=== PATIENT | female | born 1960 | race Caucasian/White ===

== ENCOUNTER 2021-03-10 06:42 | Emergency (ER) | payer MEDICARE, OTHER, SELFPAY ==
[2021-03-10 06:31] VITALS: BP 125/79; PULSE 80; RESP 16; TEMP 36.8; O2SAT 97; BMI 27.4
--- NOTE | 2021-03-10 06:32 | HMH.EDGENADL ---
ED Disposition Clinical Impression: Facial laceration Qualifiers: Encounter type: initial encounter Qualified Code(s): S01.81XA - Laceration without foreign body of other part of head, initial encounter Head injury Qualifiers: Encounter type: initial encounter Qualified Code(s): S09.90XA - Unspecified injury of head, initial encounter Disposition: Home, Self-Care Condition on Discharge: Good Instructions: How to Prevent Falls Additional Instructions: Return in 7 days for suture removal. Keep sutures clean, dry, and intact. After sutures removed, use sunscreen on area over the next several months to improve cosmetic outcome. Concussion cannot be ruled out. Avoid activities that predispose to a second head injury over the next 1-2 weeks and any activities that may exacerbate/illicit symptoms. Follow-up with PCP for recheck. Return if any new or worsening symptoms prior to that time. Referrals: Robert Calvin MD [Primary Care Provider] - - Critical Care Critical Care Time: No Attestation: On , the high probability of a clinically significant, sudden or life threatening deterioration of the following system(s) required my full and direct attention, intervention and personal management. The time I documented below is in addition to time spent performing reported procedures but includes the following listed in this critical care notation. Medical Decision Making - Medical Records Medical records reviewed: Yes: I reviewed the patient's medical records. - Khang Inquiry Pt receiving controlled substance: No Vital Signs: 03/10/21 06:31 03/10/21 07:40 Temperature 98.2 F Temperature Source Oral Pulse Rate 82 Pulse Rate [Left Radial] 80 Respiratory Rate 16 18 Blood Pressure 148/81 H Blood Pressure [Left Arm] 125/79 Blood Pressure Mean [Left Arm] 94 Blood Pressure Source [Left Arm] Automatic Cuff Blood Pressure Position Sitting Blood Pressure Position [Left Arm] Sitting 02 Sat by Pulse Oximetry 97 97 Oxygen Delivery Method Room Air Room Air Orders (Tests/Meds): ED MEDICATIONS Discontinued Medications Generic Name Dose Route Start Last Admin Trade Name Freq PRN Reason Stop Dose Admin Tetanus/Diphtheria Toxoids 0.5 ml 03/10/21 06:43 03/10/21 06:51 Tetanus-Diphth Toxoid, Adult 0.5ml Syr IM 03/10/21 06:44 0.5 ml .ONCE ONE Administration ORDERS Category Date Time Status CT cervical spine wo con Stat Cat Scan 03/10/21 06:[address] facial bones wo con Stat Cat Scan 03/10/21 06:[address] head/brain wo con Stat Cat Scan 03/10/21 06:49 Taken Elbow XR right 2 views [XR elbow RT 2V] Stat Exams 03/10/21 06:35 Taken Medical Decision Narrative: Patient presents the emergency department after a mechanical fall suffering a laceration just superior to the right upper lip. She did not lose consciousness. She has no neck pain. She did not hit her head. No signs of trauma to scalp. No headache, n/v, or altered mental status. She does endorse some mild right elbow pain. X-ray will be obtained to ensure no bony abnormality. She does have some ecchymosis and some tenderness on palpation of right maxilla. CT facial bones ordered to ensure no bony abnormality. Patient's tetanus will be updated. Patient unable to give a clear history though I am concerned to the obvious trauma to her face. CT head will be obtained to ensure no acute intracranial abnormality as well as CT cervical spine to ensure no hyperextension injury. X-ray, per my review, demonstrates no bony abnormalities right elbow and CT also negative for acute bony injury to the face/neck. CT head negative for ICH/skull fx. See procedure section's note for further details on laceration repair. Patient tolerated procedure well. She will return in 5 to 7 days for suture removal. Suture care guidelines gone over in detail with patient and she verbalizes understanding agrees. Patient discharged in stable condition. Disposition
--- NOTE | 2021-03-10 06:35 | XR_ITS ---
PROCEDURE INFORMATION: Exam: XR Right Elbow Exam date and time: 03/10/2021 6:35 AM Age: 60 years old Clinical indication: Injury or trauma; Fall; Blunt trauma (contusions or hematomas); Elbow; Right; Additional info: R elbow pain S/P fall TECHNIQUE: Imaging protocol: XR Right elbow. Views: 1 or 2 views. COMPARISON: No relevant prior studies available. FINDINGS: Bones/joints: There is a deformity of the radial head which I suspect represents sequelae of remote trauma, although, an acute radial head fracture is not excluded entirely. I do not see a definite joint effusion arguing against an acute radial head fracture. The distal humerus and proximal ulna are intact. Soft tissues: See Bones/joints finding. IMPRESSION: 1. Deformity of the radial head which I suspect is sequelae of remote trauma , although, clinical correlation is advised. 2. No definite joint effusion arguing against an acute radial head fracture.
--- NOTE | 2021-03-10 06:36 | CT_ITS ---
PROCEDURE INFORMATION: Exam: CT Maxillofacial Without Contrast Exam date and time: 03/10/2021 6:36 AM Age: 60 years old Clinical indication: Injury or trauma; Fall; Blunt trauma (contusions or hematomas); Maxilla; Additional info: Mechanical fall w/ttp R maxilla and bruising TECHNIQUE: Imaging protocol: Computed tomography images of the face without contrast. Radiation optimization: All CT scans at this facility use at least one of these dose optimization techniques: automated exposure control; mA and/or kV adjustment per patient size (includes targeted exams where dose is matched to clinical indication); or iterative reconstruction. COMPARISON: No relevant prior studies available. FINDINGS: Orbital cavity: Orbits are normal. Globes are unremarkable. Bones/joints: No acute fracture. Paranasal sinuses: Normal. No air-fluid levels. Auditory system: There is debris in the external auditory canals. Soft tissues: Unremarkable. IMPRESSION: No acute findings.
--- NOTE | 2021-03-10 06:49 | CT_ITS ---
PROCEDURE INFORMATION: Exam: CT Cervical Spine Without Contrast Exam date and time: 03/10/2021 6:49 AM Age: 60 years old Clinical indication: Injury or trauma; Fall; Blunt trauma; Additional info: Mechanical fall onto face R/O hyperextension injur TECHNIQUE: Imaging protocol: Computed tomography images of the cervical spine without contrast. Radiation optimization: All CT scans at this facility use at least one of these dose optimization techniques: automated exposure control; mA and/or kV adjustment per patient size (includes targeted exams where dose is matched to clinical indication); or iterative reconstruction. COMPARISON: No relevant prior studies available. FINDINGS: Limitations: Motion. Bones/joints: The anterior, posterior and spinal laminar lines are maintained. The vertebral body heights are maintained as well. The posterior elements appear intact and normally articulated. The atlantooccipital and atlantoaxial articulations are anatomic. The visualized skull base appears intact. Discs/Spinal canal/Neural foramina: There are mild age-related degenerative changes in the cervical spine. Detail of the spinal canal is limited by CT evaluation. However, no large disc protrusion epidural hematoma or epidural abscess identified. No severe spinal canal stenosis. Thyroid: There is a peripherally calcified 1.2 cm nodule within the left thyroid lobe. Lungs: Lung apices are clear. Soft tissues: No prevertebral or posterior paraspinous swelling. IMPRESSION: No acute fracture or dislocation of the cervical spine. COMMENTS: Consistent with the [place] [employer]'s Incidental Findings Committee white paper (J Am Enrique Radiol 2015): In patients aged 35 years and older with an incidental thyroid nodule equal to or greater than 1.[address], MRI or extrathyroidal US, further evaluation with dedicated thyroid US is recommended for patients with normal life expectancy and without comorbidities. For smaller nodules without suspicious features, no further evaluation or follow up is recommended.
--- NOTE | 2021-03-10 06:49 | CT_ITS ---
PROCEDURE INFORMATION: Exam: CT Head Without Contrast Exam date and time: 03/10/2021 6:49 AM Age: 60 years old Clinical indication: Injury or trauma; Fall; Blunt trauma (contusions or hematomas); Without loss of consciousness; Additional info: Head injury, fall TECHNIQUE: Imaging protocol: Computed tomography of the head without contrast. Radiation optimization: All CT scans at this facility use at least one of these dose optimization techniques: automated exposure control; mA and/or kV adjustment per patient size (includes targeted exams where dose is matched to clinical indication); or iterative reconstruction. COMPARISON: No relevant prior studies available. FINDINGS: Limitations: Motion. Brain: The banuelos-white matter differentiation and basilar cisterns are maintained. There is no mass, mass effect or midline shift. No acute intracranial hemorrhage is identified. Cerebral ventricles: No intraventricular hemorrhage or mass. Bones/joints: Osseous structures are intact. No osteolytic or blastic bone lesions appreciated. Paranasal sinuses: There is minimal mucosal thickening within the posterior right ethmoid air cells. There is mild mucosal thickening within the sphenoid sinuses. Mastoid air cells: Visualized mastoid air cells are well aerated and clear. Auditory system: There is debris within the external auditory canals bilaterally. Orbital cavity: The globes are intact and there is no retro-orbital hematoma. Soft tissues: No focal scalp swelling or hematoma. IMPRESSION: 1. Limited by motion but no definite acute intracranial trauma. 2. Mild sinusitis.
--- NOTE | 2021-03-10 07:38 | PC.NURSE ---
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 Pt tolerated well.
[2021-03-10 07:40] VITALS: BP 148/81; PULSE 82; RESP 18; O2SAT 97
--- NOTE | 2021-03-10 08:14 | PC.NURSE ---
notified staff at [facility] pt is ready for d/c
[2021-03-10 08:23] VITALS: BP 129/76; PULSE 81; RESP 18; O2SAT 96
[2021-03-10 09:22] VITALS: BP 129/76; PULSE 81; RESP 18; TEMP 36.8; O2SAT 96
--- NOTE | 2021-03-10 10:09 | PC.NURSE ---
per Dr. Calvin states him or his office staff will call [facility] on Friday of this coming week with a plan for follow up for pt r/t orthoglass splint on RUE r/t possible fracture. Relayed this information to addy at [facility] about follow up for pt.
== END 2021-03-10 09:22 | disposition home or self-care (01) ==
PROVIDERS: Emergency Provider Emergency Medicine; PCP Emergency Medicine
DX: S01.511A Laceration without foreign body of lip, initial encounter (principal); S63.501A Unspecified sprain of right wrist, initial encounter; W01.0XXA Fall on same level from slipping, tripping and stumbling without subsequent striking against object, initial encounter; Y92.017 Garden or yard in single-family (private) house as the place of occurrence of the external cause; Z23 Encounter for immunization; F17.210 Nicotine dependence, cigarettes, uncomplicated
CPT/HCPCS: 12051; 29125; 70450; 70486; 72125; 73070; 90471; 90714; 99282

== ENCOUNTER → 2021-03-23 13:24 | Outpatient (CLI) | payer MEDICARE, OTHER, SELFPAY ==
--- NOTE | 2021-03-23 13:29 | XR_ITS ---
PROCEDURE: XR WRIST RT MIN 3V CLINICAL INDICATION: RT wrist pain None COMPARISON: DX R WRIST, 2 VIEWS from 03/15/2021 FINDINGS: There is a splint in place anteriorly. No obvious fracture or dislocation is evident. Some of the bony detail somewhat obscured due to the overlying splint. The joint spaces are well-preserved. No significant degenerative/arthritic changes. No erosive changes evident. Other findings:None. IMPRESSION: No acute findings. Dictated by: Mayank Murry MD 03/23/2021 14:20 Mayank Murry MD in [facility] 03/23/2021 14:20
== END ==
PROVIDERS: PCP Emergency Medicine; Visit Provider Orthopaedic Surgery
DX: M25.531 Pain in right wrist (principal)
CPT/HCPCS: 73110

== ENCOUNTER 2021-03-23 14:41 | Outpatient (RCR) | payer MEDICARE, OTHER, SELFPAY | END 2021-03-23 15:31 | disposition home or self-care (01) | LOC: OT 14:41 | PROVIDERS: Visit Provider Orthopaedic Surgery | DX: M25.531 Pain in right wrist (principal) | CPT/HCPCS: 97763 ==

== ENCOUNTER 2021-04-07 11:14 | Observation (INO) | payer MEDICARE, OTHER, SELFPAY ==
[2021-04-07] VITALS (15 sets, daily range): BP systolic 94–153; BP diastolic 58–90; PULSE 65–96; RESP 18–38; TEMP 36.4–37.1; O2SAT 92–97; BMI 19.3; BMI 25.0
--- NOTE | 2021-04-07 11:25 | XR_ITS ---
PROCEDURE INFORMATION: Exam: XR Chest Exam date and time: 04/07/2021 11:25 AM Age: 60 years old Clinical indication: Tachypnea TECHNIQUE: Imaging protocol: XR of the chest. Views: 1 view. COMPARISON: No relevant prior studies available. FINDINGS: Lungs: No consolidation. Small well-defined nodule in the right costophrenic sulcus likely a calcified granuloma. Pleural spaces: No pleural effusion. No pneumothorax. Heart/Mediastinum: No cardiomegaly. Bones/joints: No acute abnormality. IMPRESSION: No acute cardiopulmonary disease.
--- NOTE | 2021-04-07 11:31 | ECG_ITS ---
APPROVED REPORT Exam: Resting ECG HR:68 bpm ECG Measurements Heart Rate 68 AXES IA 90 P 73 QRSd 120 QRS 38 QT 374 T 122 QTc 397 Conclusion Sinus rhythm with short IA Nonspecific intraventricular conduction delay Marked ST abnormality, possible lateral subendocardial injury Abnormal ECG Electronically signed by : Clem Stiles, 04/08/2021 08:52:09
[2021-04-07 11:43] LABS: Basophils % 0.2 % (0.1-2.0); Eosinophils % 0.3 % (0.1-12.0); Hematocrit 42.2 % (37.0-47.0); Hemoglobin 14.3 g/dL (12.2-16.2); Lymphocytes # 1.2 K/mm3 (0.7-4.5); Lymphocytes % 18.8 % (10-50); Mean Corpuscular HGB Conc 33.8 g/dL (31.8-35.4); Mean Corpuscular Hemoglobin 30.7 pg (27.0-31.2); Mean Corpuscular Volume 90.8 fl (81-99); Mean Platelet Volume 7.7 fl (7.4-10.4); Monocytes # 0.4 K/mm3 (0.1-1.0); Monocytes % 6.8 % (1.7-9.3); Neutrophils # 4.8 K/mm3 (1.8-7.8); Neutrophils % 73.9 % (37.0-80.0); Platelet Count 286 K/mm3 (142-424); Red Blood Count 4.65 M/mm3 (4.20-5.40); Red Cell Distribution Width 13.1 % (11.5-17.5); White Blood Count 6.5 K/mm3 (4.8-10.8)
[2021-04-07 11:46] LABS: Chloride 99 mmol/L (98-107); Sodium 127 mmol/L (136-145)
[2021-04-07 11:49] LABS: Alanine Aminotransferase 14 U/L (12-78); Albumin Level 3.9 g/dl (3.5-5.0); Albumin/Globulin Ratio 1.4 (1.1-1.8); Alkaline Phosphatase 83 U/L (38-126); Aspartate Amino Transferase 22 U/L (14-36); Bilirubin,Total 0.6 mg/dl (0.2-1.3); Blood Urea Nitrogen 3 mg/dl (7-17); Carbon Dioxide 21 mmol/L (22.0-30.0); Creatinine Clearance Estimated 87 mL/min (50-200); Estimated Glomerular Filt Rate 102 ml/min (>60); GFR (African American) 124 ML/MIN (>60); Globulin 2.7 g/dL (1.3-3.2); Total Protein,Serum 6.6 g/dl (6.3-8.2)
[2021-04-07 11:50] LABS: Calcium 8.6 mg/dl (8.4-10.2); Glucose 123 mg/dl (74-100)
--- NOTE | 2021-04-07 12:22 | HMH.EDGENADL ---
ED Disposition Clinical Impression: Hyponatremia, Hypokalemia, Weakness Disposition: Admitted As Inpatient Condition on Discharge: Good - Critical Care Critical Care Time: No Attestation: On 04/07/21, the high probability of a clinically significant, sudden or life threatening deterioration of the following system(s) required my full and direct attention, intervention and personal management. The time I documented below is in addition to time spent performing reported procedures but includes the following listed in this critical care notation. Medical Decision Making - Medical Records MR Comment: Long history of psychiatric issues and she lives in a personal nursing home. According to the staff she has some increased confusion. The only clinical finding is hyponatremia and hypokalemia. She will be admitted to be treated for those 2 problems as observation status. Dr. Stiles was called and he agreed admission. - Khang Inquiry Pt receiving controlled substance: No Vital Signs: 04/07/21 11:15 04/07/21 11:30 04/07/21 11:43 Temperature 97.5 F L Temperature Source Oral Pulse Rate 73 65 Pulse Rate [Left] 66 Respiratory Rate 38 H 20 22 Blood Pressure 94/66 L 102/64 L Blood Pressure [Right Arm] 111/68 Blood Pressure Mean 75 73 Blood Pressure Mean [Right Arm] 82 Blood Pressure Source Blood Pressure Source [Right Arm] Automatic Cuff Blood Pressure Position Blood Pressure Position [Right Arm] Sitting 02 Sat by Pulse Oximetry 92 L 96 96 Oxygen Delivery Method Room Air 04/07/21 12:00 04/07/21 12:30 04/07/21 13:01 Temperature Temperature Source Pulse Rate 82 70 81 Pulse Rate [Left] Respiratory Rate 18 20 22 Blood Pressure 102/58 L 101/64 L 123/89 Blood Pressure [Right Arm] Blood Pressure Mean 72 72 97 Blood Pressure Mean [Right Arm] Blood Pressure Source Blood Pressure Source [Right Arm] Blood Pressure Position Blood Pressure Position [Right Arm] 02 Sat by Pulse Oximetry 97 Oxygen Delivery Method 04/07/21 13:30 04/07/21 14:12 04/07/21 14:30 Temperature 98.3 F Temperature Source Oral Pulse Rate 76 78 88 Pulse Rate [Left] Respiratory Rate 20 18 20 Blood Pressure 140/70 150/89 H 135/87 Blood Pressure [Right Arm] Blood Pressure Mean 97 102 Blood Pressure Mean [Right Arm] Blood Pressure Source Automatic Cuff Blood Pressure Source [Right Arm] Blood Pressure Position Supine Blood Pressure Position [Right Arm] 02 Sat by Pulse Oximetry 96 96 Oxygen Delivery Method Room Air 04/07/21 15:00 04/07/21 15:30 04/07/21 17:06 Temperature 98.4 F Temperature Source Oral Pulse Rate 96 H 93 H 88 Pulse Rate [Left] Respiratory Rate 20 18 20 Blood Pressure 153/90 H 152/89 H 126/82 Blood Pressure [Right Arm] Blood Pressure Mean 111 106 Blood Pressure Mean [Right Arm] Blood Pressure Source Automatic Cuff Blood Pressure Source [Right Arm] Blood Pressure Position Sitting Blood Pressure Position [Right Arm] 02 Sat by Pulse Oximetry 95 96 95 Oxygen Delivery Method Room Air - Lab Data Lab Results 04/07/21 11:00: WBC 6.5, RBC 4.65, Hgb 14.3, Hct 42.2, MCV 90.8, MCH 30.7, MCHC 33.8, RDW 13.1, Plt Count 286, MPV 7.7, Neut % (Auto) 73.9, Lymph % (Auto) 18.8, [place] % (Auto) 6.8, Eos % (Auto) 0.3, Baso % (Auto) 0.2, Neut # (Auto) 4.8, Lymph # (Auto) 1.2, [place] # (Auto) 0.4, Eos # (Auto) 0.0, Baso # (Auto) 0.0 04/07/21 11:00: Sodium 127 L, Potassium 3.0 L, Chloride 99, Carbon Dioxide 21 L, Anion Gap 10.0, BUN 3 L, Creatinine 0.60, Estimated Creat Clear 87, Estimated GFR 102, Est GFR ( Amer) 124, Glucose 123 H, Calcium 8.6, Total Bilirubin 0.6, AST 22, ALT 14, Alkaline Phosphatase 83, Total Protein 6.6, Albumin 3.9, Globulin 2.7, Albumin/Globulin Ratio 1.4 04/07/21 14:00: Urine Color Yellow, Urine Appearance Clear, Urine pH 5.5, Ur Specific [place] 1.015, Urine Protein Negative, Urine Glucose (UA) Negative, Urine [place]
--- NOTE | 2021-04-07 12:24 | CT_ITS ---
PROCEDURE INFORMATION: Exam: CT Head Without Contrast Exam date and time: 04/07/2021 12:24 PM Age: 60 years old Clinical indication: Altered mental status/memory loss; Patient HX: AMS; Additional info: Change in mentl status TECHNIQUE: Imaging protocol: Computed tomography of the head without contrast. Radiation optimization: All CT scans at this facility use at least one of these dose optimization techniques: automated exposure control; mA and/or kV adjustment per patient size (includes targeted exams where dose is matched to clinical indication); or iterative reconstruction. COMPARISON: CT HEAD/BRAIN WO CON 03/10/2021 6:52 AM FINDINGS: Brain: Mild generalized cerebral volume loss and mild patchy white matter hypoattenuation, commonly secondary to chronic small vessel ischemic change. Mild intracranial atherosclerosis. No acute ischemic infarction. No acute intracranial hemorrhage. Cerebral ventricles: No ventriculomegaly. Paranasal sinuses: Mild paranasal sinus mucosal thickening. Mastoid air cells: Visualized mastoid air cells are well aerated. Bones/joints: No acute fracture. Soft tissues: Unremarkable. Other findings: Study is degraded by patient motion artifact. IMPRESSION: No acute intracranial abnormality.
--- NOTE | 2021-04-07 12:49 | PC.NURSE ---
patient back from CT
--- NOTE | 2021-04-07 12:59 | PC.NURSE ---
spoke with Dr Stiles for admission
--- NOTE | 2021-04-07 14:00 | PC.NURSE ---
spoke with [facility] employee about plan of care for patient. updated them on current situation and informed them that she will be admitted to the hospital.
--- NOTE | 2021-04-07 14:01 | PC.NURSE ---
patient to bathroom. provided urine sample
--- NOTE | 2021-04-07 14:11 | PC.NURSE ---
Addendum entered by Shreya Villegas RN 04/07/21 14:25: wrong patient Original Note: patient to OR
[2021-04-07 14:15] LABS: Microscopic, Urine URINE MICROSCOPIC (MICROSCOPIC)
[2021-04-07 14:19] LABS: Appearance,Urine CLEAR (Clear); Bilirubin,Urine Negative (Negative); Blood, Urine 1+ (Negative); Color,Urine YELLOW (Yellow); Glucose,Urine (UA) Negative (Negative); Ketones,Urine Negative (Negative); Leukocyte Esterase,Urine Negative (Negative); Nitrate,Urine POSITIVE (Negative); PH,Urine 5.5 (5.0-8.5); Protein,Urine Negative (Negative); Specific Gravity, Urine 1.015 (1.005-1.030); Urobilinogen,Urine 0.2 EU/dl (0.2)
[2021-04-07 14:27] LABS: Bacteria,Urine 2+ /lpf; RBC,Urine Occasional #/hpf (0-3); WBC,Urine Occasional #/hpf (0-3)
--- NOTE | 2021-04-07 14:41 | PC.NURSE ---
lunch ordered for patient
--- NOTE | 2021-04-07 17:10 | PC.NURSE ---
report called to MASOUD Larios on 2nd floor
--- NOTE | 2021-04-07 17:24 | PC.NURSE ---
transport here to take patient to 2nd floor. patient VSS
[2021-04-07 18:23] LABS: Basophils % 0.2 % (0.1-2.0); Eosinophils % 0.1 % (0.1-12.0); Hematocrit 43.1 % (37.0-47.0); Hemoglobin 14.4 g/dL (12.2-16.2); Lymphocytes # 1.3 K/mm3 (0.7-4.5); Lymphocytes % 16.6 % (10-50); Mean Corpuscular HGB Conc 33.4 g/dL (31.8-35.4); Mean Corpuscular Hemoglobin 30.8 pg (27.0-31.2); Mean Corpuscular Volume 92.3 fl (81-99); Mean Platelet Volume 7.5 fl (7.4-10.4); Monocytes # 0.4 K/mm3 (0.1-1.0); Monocytes % 4.7 % (1.7-9.3); Neutrophils # 5.9 K/mm3 (1.8-7.8); Neutrophils % 78.4 % (37.0-80.0); Platelet Count 253 K/mm3 (142-424); Red Blood Count 4.66 M/mm3 (4.20-5.40); Red Cell Distribution Width 13.2 % (11.5-17.5); White Blood Count 7.5 K/mm3 (4.8-10.8)
[2021-04-07 18:28] LABS: Chloride 107 mmol/L (98-107); Potassium 3.9 mmoL/L (3.5-5.1); Sodium 136 mmol/L (136-145)
[2021-04-07 18:30] LABS: Blood Urea Nitrogen 4 mg/dl (7-17); Creatinine Clearance Estimated 74 mL/min (50-200); Estimated Glomerular Filt Rate 73 ml/min (>60); GFR (African American) 89 ML/MIN (>60); Lactic Acid 1.8 mmol/L (0.7-2.1)
[2021-04-07 18:31] LABS: Alanine Aminotransferase 17 U/L (12-78); Albumin Level 3.9 g/dl (3.5-5.0); Albumin/Globulin Ratio 1.4 (1.1-1.8); Alkaline Phosphatase 68 U/L (38-126); Anion Gap 8.9 mEq/L (5-15); Aspartate Amino Transferase 25 U/L (14-36); Bilirubin,Total 0.6 mg/dl (0.2-1.3); Calcium 8.9 mg/dl (8.4-10.2); Carbon Dioxide 24 mmol/L (22.0-30.0); Globulin 2.8 g/dL (1.3-3.2); Glucose 111 mg/dl (74-100); Total Protein,Serum 6.7 g/dl (6.3-8.2)
--- NOTE | 2021-04-07 20:24 | PC.NURSE ---
Pt is a poor historian. Pt has had no c/o's since arriving to floor. CB in reach. VSS.Refused to change in to gown at this time.
[2021-04-08 03:53] VITALS: BP 127/74; PULSE 67; RESP 16; TEMP 37.2; O2SAT 93
--- NOTE | 2021-04-08 04:59 | PC.NURSE ---
VS WNL, shows no s/s of acute distress at this time, call light within reach, bed at lowest level for safety; will continue to monitor.
[2021-04-08 05:05] VITALS: BMI 25.6
[2021-04-08 08:00] VITALS: BP 115/62; PULSE 66; RESP 20; TEMP 37.2; O2SAT 94
[2021-04-08 08:38] LABS: Basophils % 0.2 % (0.1-2.0); Eosinophils % 0.5 % (0.1-12.0); Lymphocytes # 1.5 K/mm3 (0.7-4.5); Lymphocytes % 24.7 % (10-50); Mean Corpuscular HGB Conc 32.5 g/dL (31.8-35.4); Mean Corpuscular Hemoglobin 30.5 pg (27.0-31.2); Mean Corpuscular Volume 93.9 fl (81-99); Mean Platelet Volume 7.6 fl (7.4-10.4); Monocytes # 0.4 K/mm3 (0.1-1.0); Monocytes % 6.2 % (1.7-9.3); Neutrophils # 4.2 K/mm3 (1.8-7.8); Neutrophils % 68.4 % (37.0-80.0); Platelet Count 226 K/mm3 (142-424); Red Blood Count 4.26 M/mm3 (4.20-5.40); Red Cell Distribution Width 13.3 % (11.5-17.5); White Blood Count 6.1 K/mm3 (4.8-10.8)
[2021-04-08 08:43] LABS: Chloride 111 mmol/L (98-107); Potassium 3.9 mmoL/L (3.5-5.1); Sodium 138 mmol/L (136-145)
[2021-04-08 08:46] LABS: Anion Gap 6.9 mEq/L (5-15); Blood Urea Nitrogen 5 mg/dl (7-17); Carbon Dioxide 24 mmol/L (22.0-30.0); Creatinine Clearance Estimated 86 mL/min (50-200); Estimated Glomerular Filt Rate 86 ml/min (>60); GFR (African American) 104 ML/MIN (>60)
[2021-04-08 08:47] LABS: Calcium 8.2 mg/dl (8.4-10.2); Glucose 117 mg/dl (74-100)
--- NOTE | 2021-04-08 09:30 | HMH.HP ---
*Admission Date: 04/07/21 *Chief complaint: weakness *History of present illness: this patient was [facility] for recent episode of nausea and not feeling good. patient was diaphoretic - patient denies abdominal pain, or vomiting. Is a 60-year-old female who history of psychiatric disorder most likely schizoaffective disorder. He is living in a personal intermediate. She was sent here for evaluation because she is not feeling good and little bit confused than usual. She denies any nausea or vomiting. No fever. No chest pain or shortness of breath. No abdominal pain. According to the staff at the personal intermediate she was little confused today. pt with abn ua and electrolyte abnormalities and was admitted for ivf and meds [facility] History I have reviewed the patient's past medical history: Yes *Have you ever received a pneumonia vaccine?: No *Have you received a flu vaccine this season?: No - *Social History Smoking Status: Current every day smoker # Packs/Day (cigarettes): 1 Alcohol Intake: never *Occupational Status:: other Housing: assisted living facility *Travel in the last 8 weeks: None Family Hx:: No significant family history Review of Systems - Review of Systems Review of systems:: pertinent systems reviewed and negative unless documented below - Constitutional Denies fever(s) - Eyes Denies change in vision - ENT Denies sore throat - *Cardiovascular Denies chest pain at rest, Denies shortness of breath - *Respiratory Denies cough - *Gastrointestinal Denies vomiting - *Genitourinary Denies painful urination - *Musculoskeletal Denies joint pain - Integumentary/Breasts Denies rash - *Neurologic Reports confusion, Denies seizure-like activity, Denies localized weakness - Psychiatric Reports anxiety Meds Home Medications Medication Instructions Recorded Confirmed Type Benztropine Mesylate [Cogentin 1mg 1 mg PO BID 03/10/21 04/07/21 History tablet] Fluvoxamine Maleate 50 mg PO DAILY 03/10/21 04/07/21 History Paliperidone Palmitate [Invega 234 mg IM MONTHLY 03/10/21 04/07/21 History Sustenna] risperiDONE [Risperidone] 2 mg PO BID 03/10/21 04/07/21 History Allergies Allergy/AdvReac Type Severity Reaction Status Date / Time No Known Allergies Allergy Verified 03/23/21 14:31 Exam Vital signs and Labs for Last 24 Hours: Temp Pulse Resp BP Pulse Ox 98.9 F 67 16 127/74 93 L 04/08/21 03:53 04/08/21 03:53 04/08/21 03:53 04/08/21 03:53 04/08/21 03:53 Laboratory Results - last 24 hr 04/07/21 11:00: WBC 6.5, RBC 4.65, Hgb 14.3, Hct 42.2, MCV 90.8, MCH 30.7, MCHC 33.8, RDW 13.1, Plt Count 286, MPV 7.7, Neut % (Auto) 73.9, Lymph % (Auto) 18.8, [place] % (Auto) 6.8, Eos % (Auto) 0.3, Baso % (Auto) 0.2, Neut # (Auto) 4.8, Lymph # (Auto) 1.2, [place] # (Auto) 0.4, Eos # (Auto) 0.0, Baso # (Auto) 0.0 04/07/21 11:00: Sodium 127 L, Potassium 3.0 L, Chloride 99, Carbon Dioxide 21 L, Anion Gap 10.0, BUN 3 L, Creatinine 0.60, Estimated Creat Clear 87, Estimated GFR 102, Est GFR ( Amer) 124, Glucose 123 H, Calcium 8.6, Total Bilirubin 0.6, AST 22, ALT 14, Alkaline Phosphatase 83, Total Protein 6.6, Albumin 3.9, Globulin 2.7, Albumin/Globulin Ratio 1.4 04/07/21 14:00: Urine Color Yellow, Urine Appearance Clear, Urine pH 5.5, Ur Specific [place] 1.015, Urine Protein Negative, Urine Glucose (UA) Negative, Urine Ketones Negative, Urine Blood 1+, Urine Nitrate Positive, Urine Bilirubin Negative, Urine Urobilinogen 0.2, Ur Leukocyte Esterase Negative, Urine RBC Occasional, Urine WBC Occasional, Ur Squamous Epith Cells 3-5, Urine Bacteria 2+ 04/07/21 18:15: Lactate 1.8 04/07/21 18:15: WBC 7.5, RBC 4.66, Hgb 14.4, Hct 43.1, MCV 92.3, MCH 30.8, MCHC 33.4, RDW 13.2, Plt Count 253, MPV 7.5, Neut % (Auto) 78.4, Lymph % (Auto) 16.6, [place] % (Auto) 4.7, Eos % (Auto) 0.1, Baso % (Auto) 0.2, Neut # (Auto) 5.9, Lymph # (Auto) 1.3, [place] # (Auto) 0.4, Eos # (Auto) 0
--- NOTE | 2021-04-08 13:57 | HMH.PHAVTE ---
[facility] Pharmacy VTE Monitoring - Patient Demographics Admission date: 04/07/21 Report Date: 04/08/21 Time: 13:57 Allergies/Adverse Reactions: Patient Allergies No Known Allergies Allergy (Verified 03/23/21 14:31) Height: 1.57 m Weight: 63.106 kg Patient Problems: Current Active Problems Hyponatremia (Acute) Hypokalemia (Acute) Weakness (Acute) - VTE Risk Labs: VTE Related Lab Results Hgb 13.0 g/dL (12.2-16.2) 04/08/21 08:14 Hct 40.0 % (37.0-47.0) 04/08/21 08:14 Plt Count 226 K/mm3 (142-424) 04/08/21 08:14 BUN 5 mg/dl (7-17) L 04/08/21 08:14 Creatinine 0.70 mg/dl (0.52-1.04) 04/08/21 08:14 Estimated Creat Clear 86 mL/min (50-200) 04/08/21 08:14 - Prophylaxis VTE Prophylaxis Ordered?: Yes Types of VTE Prophylaxis: TEDS Knee High Location of Applied Device: Bilateral Lower Extremeties
[2021-04-08 16:00] VITALS: BP 125/73; PULSE 62; RESP 20; TEMP 37.3; O2SAT 98
--- NOTE | 2021-04-08 19:01 | PC.NURSE ---
No acute changes this shift. VSS.
[2021-04-08 20:00] VITALS: BP 129/79; PULSE 66; RESP 20; TEMP 37.1; O2SAT 99
[2021-04-09 03:52] VITALS: BP 122/68; PULSE 67; RESP 16; TEMP 37.2; O2SAT 94
[2021-04-09 06:59] VITALS: BMI 25.9
[2021-04-09 08:00] VITALS: BP 109/54; PULSE 72; RESP 19; TEMP 36.8; O2SAT 93
--- NOTE | 2021-04-09 09:12 | HMH.DCSUM ---
General - General Admission date:: 04/07/21 Discharge date: 04/09/21 HPI HPI: this patient was sent from assisted patient from [facility] [place] for recent episode of nausea and not feeling good. patient was diaphoretic - patient denies abdominal pain, or vomiting. Is a 60-year-old female who history of psychiatric disorder most likely schizoaffective disorder. He is living in a personal fpc. She was sent here for evaluation because she is not feeling good and little bit confused than usual. She denies any nausea or vomiting. No fever. No chest pain or shortness of breath. No abdominal pain. According to the staff at the personal fpc she was little confused today. pt with abn ua and electrolyte abnormalities and was admitted for ivf and meds Hospital Course Hospital Course: Laboratory Tests 04/07/21 04/07/21 04/07/21 11:00 11:00 14:00 WBC 6.5 RBC 4.65 Hgb 14.3 Hct 42.2 MCV 90.8 MCH 30.7 MCHC 33.8 RDW 13.1 Plt Count 286 MPV 7.7 Neut % (Auto) 73.9 Lymph % (Auto) 18.8 [place] % (Auto) 6.8 Eos % (Auto) 0.3 Baso % (Auto) 0.2 Neut # (Auto) 4.8 Lymph # (Auto) 1.2 [place] # (Auto) 0.4 Eos # (Auto) 0.0 Baso # (Auto) 0.0 Sodium 127 L Potassium 3.0 L Chloride 99 Carbon Dioxide 21 L Anion Gap 10.0 BUN 3 L Creatinine 0.60 Estimated Creat Clear 87 Estimated GFR 102 Est GFR ( Amer) 124 Glucose 123 H Lactate Calcium 8.6 Total Bilirubin 0.6 AST 22 ALT 14 Alkaline Phosphatase 83 Total Protein 6.6 Albumin 3.9 Globulin 2.7 Albumin/Globulin Ratio 1.4 Urine Color Yellow Urine Appearance Clear Urine pH 5.5 Ur Specific [place] 1.015 Urine Protein Negative Urine Glucose (UA) Negative Urine Ketones Negative Urine Blood 1+ Urine Nitrate Positive Urine Bilirubin Negative Urine Urobilinogen 0.2 Ur Leukocyte Esterase Negative Urine RBC Occasional Urine WBC Occasional Ur Squamous Epith Cells 3-5 Urine Bacteria 2+ 04/07/21 04/07/21 04/07/21 18:15 18:15 18:15 WBC 7.5 RBC 4.66 Hgb 14.4 Hct 43.1 MCV 92.3 MCH 30.8 MCHC 33.4 RDW 13.2 Plt Count 253 MPV 7.5 Neut % (Auto) 78.4 Lymph % (Auto) 16.6 [place] % (Auto) 4.7 Eos % (Auto) 0.1 Baso % (Auto) 0.2 Neut # (Auto) 5.9 Lymph # (Auto) 1.3 [place] # (Auto) 0.4 Eos # (Auto) 0.0 Baso # (Auto) 0.0 Sodium 136 Potassium 3.9 D Chloride 107 Carbon Dioxide 24 Anion Gap 8.9 BUN 4 L D Creatinine 0.80 D Estimated Creat Clear 74 Estimated GFR 73 Est GFR ( Amer) 89 D Glucose 111 H Lactate 1.8 Calcium 8.9 Total Bilirubin 0.6 AST 25 ALT 17 Alkaline Phosphatase 68 Total Protein 6.7 Albumin 3.9 Globulin 2.8 Albumin/Globulin Ratio 1.4 Urine Color Urine Appearance Urine pH Ur Specific [place] Urine Protein Urine Glucose (UA) Urine Ketones Urine Blood Urine Nitrate Urine Bilirubin Urine Urobilinogen Ur Leukocyte Esterase Urine RBC Urine WBC Ur Squamous Epith Cells Urine Bacteria 04/08/21 04/08/21 08:14 08:14 WBC 6.1 RBC 4.26 Hgb 13.0 Hct 40.0 MCV 93.9 MCH 30.5 MCHC 32.5 RDW 13.3 Plt Count 226 MPV 7.6 Neut % (Auto) 68.4 Lymph % (Auto) 24.7 [place] % (Auto) 6.2 Eos % (Auto) 0.5 Baso % (Auto) 0.2 Neut # (Auto) 4.2 Lymph # (Auto) 1.5 [place] # (Auto) 0.4 Eos # (Auto) 0.0 Baso # (Auto) 0.0 Sodium 138 Potassium 3.9 Chloride 111 H Carbon Dioxide 24 Anion Gap 6.9 BUN 5 L Creatinine 0.70 Estimated Creat Clear 86 Estimated GFR 86 Est GFR ( Amer) 104 Glucose 117 H Lactate Calcium 8.2 L Total Bilirubin AST ALT Alkaline Phosphatase Total Protein Albumin Globulin Albumin/Globulin Ratio Urine Color
--- NOTE | 2021-04-09 10:05 | SW/DCPLANNER ---
Addendum entered by Haylie Wallsburg 04/09/21 10:40: [employer] has been arranged for this patient. Addendum entered by [facility] 04/09/21 10:35: I have spoke with Trae: this patient can discharge back to [facility] today. I will arrange [employer] for this patient. Original Note: This patient currently resides at [facility]. I have attempted to contact Trae/Sunshine at [facility]: no answer or returned call at this time. This patient is medically stable for discharge today. PT/OT has evaluated this patient and stated that patient can discharge back. I will arrange [employer] once I hear back from Trae/Sunshine.
--- NOTE | 2021-04-09 10:31 | HMH.PTEV ---
Physical Therapy Evaluation Rehab PT IP Evaluation Start: 04/09/21 09:10 Freq: ONCE Status: Active Protocol: Document 04/09/21 10:28 PHOKIRSTY (Rec: 04/09/21 10:30 PHORASIA [id number]) Subjective/History History History 60 yowf adm to [facility] with nausea and general malaise. SHe reports she is independent with all mobility and [facility] with [facility] to [facility]. Subjective Subjective No c/o this am. Rehab PT IP Eval Objective Appearance Patient Behavior Appropriate Patient Orientation Person,Place,Time Difficulty following instructions none Speech Pattern Clear Ambulation Patient Able to Ambulate Yes Ambulation Observation IP General Gait Pattern Observation No Deviations/Normal Ambulation Distance (feet) 100 Ambulation Assistive Device None Ambulation Ability Independent Balance Ability to Arise Able, w/o using arms Sitting Balance Steady, safe Standing Balance Narrow stance w/o support Dynamic Sitting Balance Ability Normal Dynamic Standing Balance Ability Good Transfers Bed Transfer Ability Independent Chair Transfer Ability Independent Sit to Stand Bed Transfer Ability Independent Sit to Stand Chair Transfer Ability Independent ROM All Extremities PT ROM Status WFL MMT All Extremities PT MMT WFL Rehab PT IP prob,goals,plan Problems Date of Evaluation: 04/09/21 Discharge Plan PT Discharge Plan Pt is appropriate to return to prior living situation, no current inpatient therapy needs. G -code Required No Eval Complexity Eval Charge Codes 52696 - Moderate Complexity PHYSICIAN CERTIFICATION: I certify the specified therapy services for Damaris Jolley are required, authorized, and reviewed every 30 days.
--- NOTE | 2021-04-09 10:31 | HMH.OTEV ---
OT Inpatient Evaluation Rehab OT IP Evaluation Start: 04/09/21 09:10 Freq: ONCE Status: Complete Protocol: Document 04/09/21 10:28 [facility] (Rec: 04/09/21 10:31 [facility] [id number]) Rehab OT IP Assessment Subjective History Pt oriented x 3 on arrival. Pt agreeable to engage in therapy evaluation. Pt was admitted via eD on 04/07/21 due to increased confusion. Pt lives at personal [facility] ( [facility]) and has a past medical history of Schizophrenia. Pt claims prior to admission she was independent with all ADLs. Staff at personal chcf did provide assistance with all IADLs. Pt did not use walker. Subjective I live at [facility]. Objective Patient Orientation Person,Place,Birthday Upper Extremity Gross ROM WFL Bed Mobility bed mobility-scooting,bed mobility - supine/sit,bed mobility - rolling Assist Level Supervision/Stand by Transfer Training Sit/Stand Transfer Assist Level Supervision/Stand by Chair Transfer Ability Supervision/Stand by Chair Transfer Technique Sit to/from Ambulatory Chair Transfer Assistive Devices None Lower Body Dressing Ability Standby Assistance Upper Body Dressing Ability Standby Assistance Bathing Ability Standby Assistance Performing Toilet Hygiene Ability Standby Assistance Overall Commode/Toilet Transfer Ability Standby Assistance Commode/Toilet Transfer Technique Sit to/from Ambulatory Rehab OT IP prob,goals,plan Problems Date of Evaluation: 04/09/21 Rehab Potential Rehab Potential Innapropriate for Skilled Therapy Discharge Plan OT Discharge Plan Pt appears to be at her baseline functionally. Pt is safe to return to personal chcf once medically stable. Eval Complexity Eval Charge Codes 51861 - Moderate Complexity G Codes G -code Required No PHYSICIAN CERTIFICATION: I certify the specified therapy services for Damaris Jolley are required, authorized, and reviewed every 30 days.
== END 2021-04-09 12:25 | disposition home or self-care (01) ==
LOC: ER 13:20 → 2ND 13:33
PROVIDERS: Admitting Provider Internal Medicine Adolescent Medicine; Emergency Provider Internal Medicine; PCP Emergency Medicine; Visit Provider Emergency Medicine
DX: E87.6 Hypokalemia (principal); N39.0 Urinary tract infection, site not specified; E87.1 Hypo-osmolality and hyponatremia; F20.9 Schizophrenia, unspecified; F17.210 Nicotine dependence, cigarettes, uncomplicated; Z79.899 Other long term (current) drug therapy
CPT/HCPCS: 36415; 70450; 71045; 80048; 80053; 81001; 83605; 85025; 87086; 87088; 87186; 93005; 96365; 96375; 97162; 97166; 99284; G0378; J2405; U0003

== ENCOUNTER 2022-11-28 19:50 | Emergency (ER) | payer MEDICARE, OTHER, SELFPAY ==
[2022-11-28] VITALS (15 sets, daily range): BP systolic 110–179; BP diastolic 54–108; PULSE 64–89; RESP 6–33; TEMP 36.2–36.5; O2SAT 91–99
--- NOTE | 2022-11-28 19:56 | CT_ITS ---
PROCEDURE INFORMATION: Exam: CT Head Without Contrast Exam date and time: 11/28/2022 8:15 PM Age: 62 years old Clinical indication: Injury or trauma; Fall TECHNIQUE: Imaging protocol: Computed tomography of the head without contrast. Radiation optimization: All CT scans at this facility use at least one of these dose optimization techniques: automated exposure control; mA and/or kV adjustment per patient size (includes targeted exams where dose is matched to clinical indication); or iterative reconstruction. Other protocol: This patient has received 2 known CTs and 0 known cardiac nuclear medicine studies in the 12 months prior to the current study. COMPARISON: CT HEAD/BRAIN WO CON 04/07/2021 12:39 PM FINDINGS: Brain: Normal. No hemorrhage. Unremarkable white matter. No mass effect. Cerebral ventricles: No ventriculomegaly. Paranasal sinuses: Visualized sinuses are unremarkable. No fluid levels. Mastoid air cells: Visualized mastoid air cells are well aerated. Bones/joints: Unremarkable. No acute fracture. Soft tissues: Right forehead scalp soft tissue swelling. IMPRESSION: 1. No acute intracranial abnormality. 2. Right forehead scalp soft tissue swelling.
--- NOTE | 2022-11-28 19:56 | XR_ITS ---
PROCEDURE INFORMATION: Exam: XR Chest Exam date and time: 11/28/2022 8:35 PM Age: 62 years old Clinical indication: Device placement; Ett placement (vent status); Additional info: Post intubation TECHNIQUE: Imaging protocol: Radiologic exam of the chest. Views: 1 view. COMPARISON: CR XR CHEST PORTABLE 04/07/2021 11:51 AM FINDINGS: Tubes, catheters and devices: Endotracheal tube tip positioned 5.5 cm above the yaya. Lungs: Faint atelectasis or pneumonia at the left lung base. Pleural spaces: Unremarkable. No pleural effusion. No pneumothorax. Heart/Mediastinum: Unremarkable. No cardiomegaly. Vasculature: Aortic tortuosity. Bones/joints: Unremarkable. IMPRESSION: Endotracheal tube 5.5 cm above the yaya.
--- NOTE | 2022-11-28 19:56 | PC.NURSE ---
1950- Pt GCS of 3. Pt prepared for emergent intubation. Pt on 100% non-rebreather. 18g Iv obtained in right wrist. BP-146/82 HR-75 O2-98% 1952- 20mg Etomidate IV and 150mg Succ given per MD verbal orders. 1953- ett placed via glidascope by MD Gay. ETT secured, 18 at the lip. Positive color change and bilateral breath sounds present.
--- NOTE | 2022-11-28 19:57 | CT_ITS ---
PROCEDURE INFORMATION: Exam: CT Cervical Spine Without Contrast Exam date and time: 11/28/2022 8:15 PM Age: 62 years old Clinical indication: Injury or trauma; Fall TECHNIQUE: Imaging protocol: Computed tomography of the cervical spine without contrast. Radiation optimization: All CT scans at this facility use at least one of these dose optimization techniques: automated exposure control; mA and/or kV adjustment per patient size (includes targeted exams where dose is matched to clinical indication); or iterative reconstruction. Other protocol: This patient has received 2 known CTs and 0 known cardiac nuclear medicine studies in the 12 months prior to the current study. COMPARISON: CT CERVICAL SPINE WO CON 03/10/2021 6:58 AM FINDINGS: Bones/joints: No acute fracture. Normal alignment. Mild disc space narrowing at C5-C6 and C6-C7. No significant disc protrusion. No severe spinal canal stenosis. Lungs: Lung apices are normal. Soft tissues: Unremarkable. IMPRESSION: No acute findings.
--- NOTE | 2022-11-28 19:57 | HMH.EDGENADL ---
Discharge Plan Disposition Patient Disposition: Still a Patient Chief Complaint: Altered Mental Status Prescriptions Prescriptions: No Action risperidone 2 MG tablet 2 mg PO BID benztropine 1 MG tablet 1 mg PO BID fluvoxamine 50 MG tablet 50 mg PO DAILY paliperidone palmitate 234 MG/1.5 ML syringe 234 mg IM MONTHLY Rx Instructions: DUE ON 04/11/21 cephalexin 500 MG tablet 500 mg PO BID 10 Days Qty: 20 0RF Referrals Follow up/Referrals: Provider,Referral, [Primary Care Provider] - See instructions Clinical Impressions Clinical Impression: Altered mental status, Head trauma Discharge ED Provider: Ryan Rashid General Adult HPI General Chief complaint: Altered Mental Status Stated complaint: AMS Time Seen by Provider: 11/28/22 19:57 History of Present Illness HPI narrative: 62-year-old female presented with altered mental status. She was apparently at [facility] and was found down with a head injury. She arrived unresponsive. She has a contusion to her forehead. Unknown CODE STATUS on initial arrival. There was apparently possibly seizure activity as well shortly after the fall. Related Data Home Medications Medication Instructions Recorded Confirmed benztropine 1 mg tablet 1 mg PO BID SCHIZOPHRENIA 03/10/21 04/07/21 fluvoxamine 50 mg tablet 50 mg PO DAILY MOOD 03/10/21 04/07/21 paliperidone palmitate 234 mg/1.5 234 mg IM MONTHLY SCHIZOPHRENIA 03/10/21 04/07/21 mL intramuscular syringe risperidone 2 mg tablet 2 mg PO BID SCHIZOPHRENIA 03/10/21 04/07/21 Previous Rx's Medication Instructions Recorded cephalexin 500 mg tablet 500 mg PO BID 10 days #20 tabs 04/09/21 Allergies Allergy/AdvReac Type Severity Reaction Status Date / Time No Known Allergies Allergy Verified 03/23/21 14:31 [facility] Disclaimer: The information contained in this section may have been updated after the patient was seen, as this information can be updated by other users. Social History Smoking Status: Current every day smoker alcohol intake: never current occupational status: other Travel in the last 8 weeks: None housing: assisted living facility ROS Obtained: Yes unobtainable due to mental status Physical Exam General General appearance: obtunded Head Head exam: other (Contusion with abrasion to right side forehead) ENT ENT exam: Present normal oropharynx and mucous membranes moist Neck Neck exam: Present normal inspection; Absent tenderness Chest Chest inspection: Present symmetric chest wall rise Respiratory Respiratory exam: Present normal lung sounds bilaterally; Absent respiratory distress Cardiovascular Cardiovascular exam: Present regular rate and normal rhythm Abdominal Exam Abdominal exam: Present soft; Absent distention or tenderness Extremities Exam Extremities exam: Absent tenderness Back Exam Back exam: Absent tenderness Neurological Exam Neurological exam: Present other (Obtunded GCS 3 on arrival with eyes deviated to the left and pupils in mid position with minimal reactivity) Skin Skin exam: Present warm, dry and intact Medical Decision Making Medical Records Medical records reviewed: Yes I reviewed the patient's medical records. Khang Inquiry Pt receiving controlled substance: No Khang was queried for this patient: No Orders (Tests/Meds): ED MEDICATIONS Generic Name Dose Route Start Last Admin Trade Name Freq PRN Reason Stop Dose Admin Sodium Chloride 1,000 mls @ 999 mls/hr 11/28/22 20:00 Sod Chlor 0.9% 1000ml Bag IV 11/28/22 21:00 .Q1H1M [facility] ORDERS Category Date Time Status CT cervical spine wo con Stat Cat Scan 11/28/22 19:[address] head/brain wo con Stat Cat Scan 11/28/22 19:56 Ordered XR chest portable Stat Exams 11/28/22 19:56 Ordered Acetaminophen Stat Lab 11/28/22 19:56 Ordered Complete Blood Count Auto Diff Stat Lab 11/28/22 19:56 Ordered Comprehensive Metabolic Pane
--- NOTE | 2022-11-28 19:58 | PC.NURSE ---
iNTUBATED WITH ET TUBE SIZE 7.0, INSERTED TO 18 AT THE LIP.
[2022-11-28 20:07] LABS: POC Glucose,Bedside 198 (70-110)
--- NOTE | 2022-11-28 20:09 | CT_ITS ---
PROCEDURE INFORMATION: Exam: CT Maxillofacial Without Contrast Exam date and time: 11/28/2022 8:17 PM Age: 62 years old Clinical indication: Injury or trauma; Fall; Additional info: Fall with injury TECHNIQUE: Imaging protocol: Computed tomography of the face without contrast. Radiation optimization: All CT scans at this facility use at least one of these dose optimization techniques: automated exposure control; mA and/or kV adjustment per patient size (includes targeted exams where dose is matched to clinical indication); or iterative reconstruction. Other protocol: This patient has received 2 known CTs and 0 known cardiac nuclear medicine studies in the 12 months prior to the current study. COMPARISON: CT FACIAL BONES WO CON 03/10/2021 6:55 AM FINDINGS: Orbital cavities: Orbits are normal. Globes are unremarkable. Bones/joints: No acute fracture. Paranasal sinuses: Normal. No air-fluid levels. Soft tissues: Right forehead scalp soft tissue swelling. IMPRESSION: 1. No acute fracture. 2. Right forehead scalp soft tissue swelling.
[2022-11-28 20:13] LABS: Chloride 82 mmol/L (98-107)
[2022-11-28 20:14] LABS: Basophils # 0.1 K/mm3 (0-0.2); Basophils % 0.6 % (0.1-2.0); Eosinophils % 0.2 % (0.1-12.0); Hematocrit 43.1 % (37.0-47.0); Hemoglobin 14.9 g/dL (12.2-16.2); Lymphocytes # 1.2 K/mm3 (0.7-4.5); Lymphocytes % 11.6 % (10-50); Mean Corpuscular HGB Conc 34.5 g/dL (31.8-35.4); Mean Corpuscular Hemoglobin 31.6 pg (27.0-31.2); Mean Corpuscular Volume 91.6 fl (81-99); Mean Platelet Volume 8.1 fl (7.4-10.4); Monocytes # 0.3 K/mm3 (0.1-1.0); Monocytes % 3.2 % (1.7-9.3); Neutrophils # 8.4 K/mm3 (1.8-7.8); Neutrophils % 84.5 % (37.0-80.0); Platelet Count 258 K/mm3 (142-424); Potassium 3.6 mmoL/L (3.5-5.1); Red Blood Count 4.71 M/mm3 (4.20-5.40); Red Cell Distribution Width 12.9 % (11.5-17.5)
[2022-11-28 20:16] LABS: Alanine Aminotransferase 34 U/L (12-78); Albumin Level 4.4 g/dl (3.5-5.0); Albumin/Globulin Ratio 1.7 (1.1-1.8); Alkaline Phosphatase 71 U/L (38-126); Anion Gap 18.6 mEq/L (5-15); Aspartate Amino Transferase 49 U/L (14-36); Bilirubin,Total 1.5 mg/dl (0.2-1.3); Blood Urea Nitrogen 3 mg/dl (7-17); Calcium 8.2 mg/dl (8.4-10.2); Carbon Dioxide 16 mmol/L (22.0-30.0); Creatinine Clearance Estimated 74 mL/min (50-200); Estimated Glomerular Filt Rate 85 ml/min (>60); GFR (African American) 103 ML/MIN (>60); Globulin 2.6 g/dL (1.3-3.2); Glucose 159 mg/dl (74-100)
[2022-11-28 20:17] LABS: Magnesium 1.7 mg/dl (1.6-2.3)
[2022-11-28 20:21] LABS: Lactic Acid 3.9 mmol/L (0.7-2.1)
[2022-11-28 20:22] LABS: Acetaminophen < 10 ug/ml (10-30); Ethyl Alcohol < 10 mg/dl (0-10); Salicylate < 1.0 mg/dL (2.0-20.0)
[2022-11-28 20:23] LABS: Sodium 113 mmol/L (136-145)
[2022-11-28 20:25] LABS: Amphetamine/Metha Screen,Urine Negative ng/ml (<1000); Barbiturates Screen,Urine Negative ng/ml (<200)
[2022-11-28 20:26] LABS: Benzodiazepines Screen,Urine Negative ng/ml (<200)
[2022-11-28 20:27] LABS: Cannabinoid Screen,Urine Negative ng/ml (<50); Cocaine Screen,Urine Negative ng/ml (<300)
[2022-11-28 20:28] LABS: Methadone Screen,Urine Negative ng/ml (<300)
[2022-11-28 20:29] LABS: Opiate Screen,Urine Negative ng/ml (<300); Phencyclidine Screen,Urine Negative ng/ml (<25)
--- NOTE | 2022-11-28 20:30 | ECG_ITS ---
APPROVED REPORT Exam: Resting ECG HR:74 bpm ECG Measurements Heart Rate 74 AXES WA 137 P 67 QRSd 90 QRS 59 QT 389 T 71 QTc 416 Conclusion SINUS RHYTHM WITH SINUS ARRHYTHMIA POSSIBLE LEFT ATRIAL ENLARGEMENT [-0.1mV P-WAVE IN V1/V2] BORDERLINE ECG UNCONFIRMED REPORT Electronically signed by : Clem Stiles MD 11/29/2022 08:20:23
[2022-11-28 20:31] LABS: Troponin I < 0.01 ng/ml (0.00-0.034)
[2022-11-28 20:43] LABS: ABG Base Excess -8.4 mmol/L (-2.4-2.3); ABG HCO3 17.3 mmhg (22.0-26.0); ABG Oxygen Saturation 100 % (90-100); ABG PCO2 32.6 mmhg (35.0-45.0); ABG PH 7.34 mmol/L (7.35-7.45); ABG PO2 344.8 mmhg (80-100); ABG TCO2 18.3 mmhg (23-27)
[2022-11-28 20:44] LABS: Allen's Test Non Applicable; Oxygen 100% %; PEEP 5; Tidal Volume 420; Vent Rate 20
[2022-11-28 20:45] LABS: Source Left Radial
[2022-11-28 20:47] LABS: Microscopic, Urine URINE MICROSCOPIC (MICROSCOPIC)
[2022-11-28 20:49] LABS: Thyroid Stimulating Hormone 2.55 uIU/mL (0.465-4.68)
--- NOTE | 2022-11-28 20:53 | HMH.EDAMS ---
Discharge Plan Disposition Patient Disposition: Xfer Short-Term Hosp Prescriptions Prescriptions: No Action risperidone 2 MG tablet 2 mg PO BID benztropine 1 MG tablet 1 mg PO BID fluvoxamine 50 MG tablet 50 mg PO DAILY paliperidone palmitate 234 MG/1.5 ML syringe 234 mg IM MONTHLY Rx Instructions: DUE ON 04/11/21 cephalexin 500 MG tablet 500 mg PO BID 10 Days Qty: 20 0RF Referrals Follow up/Referrals: Provider,Referral, MD [Primary Care Provider] - See instructions Clinical Impressions Clinical Impression: Altered mental status, Head trauma, Schizophrenia, Tobacco use, Acute hyponatremia Stand Alone Forms Stand Alone Forms: Transfer Record - ED Discharge ED Provider: Ryan Rashid Altered Mental Status HPI General Chief Complaint: Altered Mental Status Stated Complaint: AMS Time Seen by Provider: 11/28/22 19:57 Mode of Arrival: EMS Source of Information: Patient Limitations: No Limitations Description of Symptoms (Recalled from ER Triage Doc. by RN): 62 yo female presents with CC of AMS s/p fall. Patient fell and had what was thought to be a seizure, to which the employees at her personal halfway then called for EMS assistance. EMS responded and found patient to have agonal respirations and a GCS of 3. Arrived to ED with SL in place. Blood sugar on scene 171 mg/dl. GCS remains3. No response to verbal or physical stimuli. PMH: schizophrenia and CHR . History of Present Illness HPI narrative: found down at [facility] with fall and head injury and possible sz -pt was intubated to protect airway and low gcs- has rt forehead small lac and hematoma- occurred about 1930- complaint: decreased responsiveness Onset (ago): minute(s) Time: 19:30 Timing confirmed by: caregiver Severity: severe Context: unknown Related Data Home Medications Medication Instructions Recorded Confirmed benztropine 1 mg tablet 1 mg PO BID SCHIZOPHRENIA 03/10/21 04/07/21 fluvoxamine 50 mg tablet 50 mg PO DAILY MOOD 03/10/21 04/07/21 paliperidone palmitate 234 mg/1.5 234 mg IM MONTHLY SCHIZOPHRENIA 03/10/21 04/07/21 mL intramuscular syringe risperidone 2 mg tablet 2 mg PO BID SCHIZOPHRENIA 03/10/21 04/07/21 Previous Rx's Medication Instructions Recorded cephalexin 500 mg tablet 500 mg PO BID 10 days #20 tabs 04/09/21 Allergies Allergy/AdvReac Type Severity Reaction Status Date / Time No Known Allergies Allergy Verified 03/23/21 14:31 [facility] Disclaimer: The information contained in this section may have been updated after the patient was seen, as this information can be updated by other users. Social History Smoking Status: Current every day smoker alcohol intake: never current occupational status: other Travel in the last 8 weeks: None housing: assisted living facility ROS Obtained: Yes unobtainable due to mental status Physical Exam General General appearance: obtunded Head Head exam: other (1 cm rt forehead lac and hematoma ) Eye Eye exam: Present PERRL (midpt pupils with nonreactive and sl gaze to lt ) ENT ENT exam: Present other (intubated ) Neck Neck exam: Present trachea midline Chest Chest inspection: Present normal inspection Respiratory Respiratory exam: Present other (intubated with intact bs bilat ) Cardiovascular Cardiovascular exam: Present regular rate Abdominal Exam Abdominal exam: Present soft Rectal Exam Rectal exam: Present normal rectal tone Extremities Exam Extremities exam: Absent joint swelling Back Exam Back exam: Present normal inspection Neurological Exam Neurological exam: Present other (obtunded and intubated with sedation on vent - possible decorticate lt upper ext and crossing of lt lower leg and has positive babinbski on rt ) Skin Skin exam: Absent rash Medical Decision Making Medical Records Medical records reviewed: Yes I reviewed the patient's medical records. Khang Inquiry Pt receiving controlled cortes
[2022-11-28 20:59] LABS: Appearance,Urine CLEAR (Clear); Bilirubin,Urine Negative (Negative); Blood, Urine 1+ (Negative); Color,Urine YELLOW (Yellow); Glucose,Urine (UA) TRACE (Negative); Ketones,Urine 2+ (Negative); Leukocyte Esterase,Urine Negative (Negative); Nitrate,Urine POSITIVE (Negative); Protein,Urine Negative (Negative); Specific Gravity, Urine >= 1.030 (1.005-1.030); Urobilinogen,Urine 0.2 EU/dl (0.2)
[2022-11-28 21:01] LABS: Coronavirus 19, PCR Not Detected (NotDetected); Influenza A, PCR Not Detected (NotDetected); Influenza B, PCR Not Detected (NotDetected)
[2022-11-28 21:03] LABS: WBC,Urine Occasional #/hpf (0-3)
[2022-11-28 21:04] LABS: RBC,Urine Occasional #/hpf (0-3)
--- NOTE | 2022-11-28 21:12 | XR_ITS ---
PROCEDURE INFORMATION: Exam: XR Pelvis Exam date and time: 11/28/2022 9:34 PM Age: 62 years old Clinical indication: Injury or trauma; Fall; Blunt trauma (contusions or hematomas); Does not apply; Pelvic region TECHNIQUE: Imaging protocol: Radiologic exam of the pelvis. Views: 1 or 2 view. COMPARISON: No relevant prior studies available. FINDINGS: Bones/joints: No acute fracture or dislocation. The hip joints, pubic symphysis and SI joints are unremarkable. Soft tissues: Unremarkable. IMPRESSION: No acute findings.
--- NOTE | 2022-11-28 21:56 | PC.NURSE ---
nallely on phone with [facility]
--- NOTE | 2022-11-28 21:56 | PC.NURSE ---
[facility] placed pt on waiting list
--- NOTE | 2022-11-28 22:07 | PC.NURSE ---
Called [facility] they took pt info they will reach out to Neuro and call us back
--- NOTE | 2022-11-28 22:16 | PC.NURSE ---
Called [facility] they have the pt on a wait list at this time will call us back if a bed becomes open
--- NOTE | 2022-11-28 22:23 | PC.NURSE ---
RECEIVED CALL FROM [facility]; DR ZEPEDA FOR CONSULT.
--- NOTE | 2022-11-28 22:48 | PC.NURSE ---
received return call from [facility] with neurology
[2022-11-28 23:34] LABS: Reflex Lactic Add Lactic Reflex
[2022-11-28 23:45] LABS: Lactic Acid Follow Up (RFLX 1) 0.9 mmol/L (0.7-2.1)
--- NOTE | 2022-11-28 23:54 | PC.NURSE ---
[facility] called back confirmed they had no luck finding transport at this time earliest would be 0200
[2022-11-28 23:59] LABS: Troponin I < 0.01 ng/ml (0.00-0.034)
[2022-11-29] VITALS: BP 110/72; PULSE 64; RESP 16; O2SAT 99
[2022-11-29 00:09] VITALS: RESP 16; O2SAT 99
[2022-11-29 00:30] VITALS: BP 148/93; PULSE 68; RESP 22; O2SAT 100
--- NOTE | 2022-11-29 00:46 | PC.NURSE ---
Report called to [facility]. [phone] direct to CCU. Nurse Lg is receiving the patient. Faxed copies of labs/discharge plan to [phone].
[2022-11-29 01:00] VITALS: BP 144/81; RESP 23; O2SAT 96
[2022-11-29 02:11] VITALS: RESP 16; O2SAT 96
--- NOTE | 2022-11-29 02:23 | PC.NURSE ---
EMS at bedside loading patient onto stretcher. RN accompanying due to Propofol gtt and EMS policy. Patient is currently at 45 mcg/hr on the propofol.
--- NOTE | 2022-11-29 19:46 | PC.NURSE ---
[facility] called to check status of pt, I let them know pt was already sent to [facility]
== END 2022-11-29 02:47 | disposition short-term general hospital (02) ==
PROVIDERS: Emergency Medicine; Emergency Provider Emergency Medicine
DX: S09.8XXA Other specified injuries of head, initial encounter (principal); R41.82 Altered mental status, unspecified; F20.9 Schizophrenia, unspecified; F17.210 Nicotine dependence, cigarettes, uncomplicated; E87.1 Hypo-osmolality and hyponatremia; W19.XXXA Unspecified fall, initial encounter; Z20.822 Contact with and (suspected) exposure to COVID-19
CPT/HCPCS: 51702; 70450; 70486; 71045; 72125; 72170; 80053; 80305; 80329; 81001; 82803; 82962; 83605; 83735; 84443; 84484; 85025; 87070; 87205; 93005; 96361; 96374; 96375; 99291; C9803; G0390; J0330; J1953; J2704; U0003; U0005